=== PATIENT | male | born 1945 | race Caucasian/White ===

== ENCOUNTER 2017-02-11 15:51 | Emergency (ER) | payer MEDICARE, MEDICAID ==
[~2017-02-11] VITALS: Ht 165.1 cm; Wt 90.0 kg
[~2017-02-11 15:51] MED LIST: ACET-1952 PO; ALLO100T PO; ASPI81 PO; ATOR20TA86 PO; METO50 PO; TAMS0.4C32 PO
[2017-02-11] MEDS ORDERED: FERR-89 PO (16:08)
[2017-02-11] MEDS ORDERED: ACETAMINOPHEN/CODEINE 300-30 MG TABLET PO ONE (17:15)
[2017-02-11] MEDS ORDERED: KETOROLAC TROMETHAMINE 60 MG/2 ML VIAL IM ONE (17:15)
[2017-02-11 19:24] VITALS: BP 135/78
== END 2017-02-11 19:35 | disposition home or self-care (01) ==
LOC: EMS 15:53
DX: S33.9XXA Sprain of unspecified parts of lumbar spine and pelvis, initial encounter (principal); S30.0XXA Contusion of lower back and pelvis, initial encounter; S00.83XA Contusion of other part of head, initial encounter; Z79.82 Long term (current) use of aspirin; Z85.46 Personal history of malignant neoplasm of prostate; V03.10XA Pedestrian on foot injured in collision with car, pick-up truck or van in traffic accident, initial encounter; Y93.89 Activity, other specified; Y92.413 State road as the place of occurrence of the external cause; Y99.9 Unspecified external cause status
CPT/HCPCS: 70450; 72070; 72100; 72125; 96372; 99284; J1885